=== PATIENT | female | born 1945 | race Caucasian/White ===

== ENCOUNTER 2019-04-20 01:37 | Emergency (ER) | payer MEDICARE, BC, MEDICAID ==
[~2019-04-20] VITALS: Ht 165.1 cm; Wt 68.2 kg
[~2019-04-20 01:37] MED LIST: BIMA2.5D LEFTEYE; EPIN15AE INH; LORA0.5T PO; POLY17PO10 PO; PSEU30SY PO; SYN0.075T PO; SYN0.088T PO; [UNRECOGNIZED DRUG - CODE] PO
[2019-04-20] MEDS ORDERED: normal saline 1000ML IV soln IVB ONE (03:00)
[2019-04-20 04:32] LABS: BASOPHILS % (AUTO) 0.2 % (0-1); EOSINOPHILS # (AUTO) 0.3 X10'3 (0-0.9); EOSINOPHILS % (AUTO) 3.1 % (0-6); HEMATOCRIT 29.8 % (35.0-45.0); HEMOGLOBIN 10.1 g/dl (12.0-16.0); LYMPHOCYTES % (AUTO) 18.7 % (21-51); MEAN CORPUSCULAR HEMOGLOBIN 30.4 PG (27.0-31.0); MEAN CORPUSCULAR HGB CONC 33.7 g/dL (33.0-36.5); MEAN CORPUSCULAR VOLUME 90.1 FL (78-98); MEAN PLATELET VOLUME 6.8 FL (7.4-10.4); MONOCYTES % (AUTO) 9.5 % (2-12); NEUTROPHILS # (AUTO) 7.2 X10'3 (1.8-7.7); NEUTROPHILS % (AUTO) 68.5 % (42-75); PLATELET COUNT 368 X10'3 (140-440); RED BLOOD COUNT 3.31 X10'6 (4.20-5.60); RED CELL DISTRIBUTION WIDTH 13.1 % (11.5-14.5); WHITE BLOOD COUNT 10.5 X10'3 (4.5-11.0)
[2019-04-20 04:36] LABS: ALANINE AMINOTRANSFERASE 26 U/L (12-78); ALBUMIN 2.8 G/DL (3.4-5.0); ALBUMIN/GLOBULIN RATIO 0.7 (1.1-1.5); ALKALINE PHOSPHATASE 68 IU/L (46-116); ANION GAP 7 (8-16); ASPARTATE AMINO TRANSFERASE 24 U/L (10-37); BILIRUBIN,TOTAL 0.2 MG/DL (0.1-1.0); BLOOD UREA NITROGEN 16 MG/DL (7-18); BUN/CREATININE RATIO 21.6 (6.6-38.0); CALCIUM 8.7 MG/DL (8.5-10.1); CHLORIDE 102 MMOL/L (99-107); CREATININE 0.74 MG/DL (0.40-0.90); GLUCOSE 106 MG/DL (70-104); POTASSIUM 3.5 MMOL/L (3.5-5.1); SODIUM 139 MMOL/L (135-145); TOTAL CARBON DIOXIDE 30.1 MMOL/L (24-32); TOTAL PROTEIN 6.7 G/DL (6.4-8.2); eGFR 77 ML/MIN
[2019-04-20 04:50] LABS: CLARITY,URINE CLEAR (Clear); COLOR,URINE YELLOW (Yellow); GLUCOSE, URINE NEGATIVE (Neg); KETONES,URINE NEGATIVE (Neg); LEUKOCYTE ESTERASE ,URINE NEGATIVE (Neg); NITRITES, URINE NEGATIVE (Neg); OCCULT BLOOD,URINE NEGATIVE (Neg); PH,URINE 8.5 (4.8-8.0); PROTEIN,URINE NEGATIVE (Neg); UROBILINOGEN,URINE 0.2 E.U/dL (0.2-1.0)
[2019-04-20] MEDS ORDERED: GABA-534 PO (04:56)
[2019-04-20] MEDS ORDERED: ASPI-100 PO (04:56)
[2019-04-20] MEDS ORDERED: BUDE10.2 INH (04:56)
[2019-04-20] MEDS ORDERED: XAL0.005OS OP (04:56)
[2019-04-20] MEDS ORDERED: FLUT16SP2 BOTHNARES (04:56)
[2019-04-20] MEDS ORDERED: LORA-269 PO (04:56)
[2019-04-20] MEDS ORDERED: ALBU18HF2 INH (04:56)
[2019-04-20] MEDS ORDERED: LEVO75TA56 PO (04:56)
[2019-04-20 04:57] LABS: UA COLLECTION TYPE NON-SPECIFIED
[2019-04-20] MEDS ORDERED: ibuprofen tablet 400 MG TABLET PO ONE ×2 (05:05→22:10)
--- NOTE | 2019-04-20 09:19 | NUR ---
Sasha stated that she has already spoke with patient and case management to see if patient could go to rehab. Patient has home health scheduled for tomorrow to come out to her home per patient. Sasha stated that she would let me know the outcome when she finds out.
[2019-04-20] MEDS ORDERED: ondansetron 4mg rapidly disintigrating tab PO ONE (09:40)
[2019-04-20] MEDS ORDERED: oxyCODONE SR 10mg (sust. release) tab PO ONE ×2 (09:40→18:10)
--- NOTE | 2019-04-20 14:44 | NUR ---
Spoke with Krys from Case Management regarding pt dc plan. Received report AISSATOU Herrera is awaiting medical records from [facility] to review pt case. Krys is to recontact Adrian Herrera and return call with update.
[2019-04-20] MEDS ORDERED: POLY17PO10 PO (16:45)
--- NOTE | 2019-04-20 16:45 | NUR ---
Pt ambulated with assist x 1 to restroom. Pt with difficulty using arms and assisted with toileting.
[2019-04-20] MEDS ORDERED: OXYC5TAB2 PO (16:47)
--- NOTE | 2019-04-20 18:19 | NUR ---
Received Norberto from [facility] for routine home meds and meds for pain control.
--- NOTE | 2019-04-20 18:40 | NUR ---
patient given a turkey sandwich and juice and ice water, before administering pain medication to to help prevent the chance of getting nausea,vomiting. patient appears to be in good spirits rr even un labored no observable s/s of acute stress at this time will continue to monitor sbar to Neema TORRES
--- NOTE | 2019-04-20 19:00 | NUR ---
ASSUMED CARE OF PT FROM MELISSA CRUZ PT TRANSFER[facility] TO [facility] . PT NEEDING SOME QUIET TIME , SPENT MOAT OF DAY IN A HALLBED . RECEIVED PT IN HOSPITAL BED WITH WOUND VAC IN PLACE AND ON . C COLLAR IN PLACE . ALL VSS PATIENT RATES PAIN 8 OUT IF 10 , WAS RECENTLY MEDICATED AND WILL REASSESS ONCE MEDICATION HAS HAD ENOUGH TIME TO TAKE EFFECT.
[2019-04-20] MEDS: gabapentin 400mg capsule PO SCH (19:14)
[2019-04-20] MEDS: docusate sod 100mg capsule PO SCH (20:29)
--- NOTE | 2019-04-20 20:38 | NUR ---
REASSESSED PAIN LEVEL AT A 5-6/ 10 MEDICATED WITH COLACE ORDERED PT DENIES ANY NEEDS AT THIS TIME . WILL CONTINUE TO REASSESS.
--- NOTE | 2019-04-20 21:26 | NUR ---
PT SLEEPING PEACFULLY SUPINE RESP UNLABORED WILL CONTINUE TO MONITOR . [facility] WILL OCCUR , DEPENDING ON AVAILBILITY [facility] 04/21/19
--- NOTE | 2019-04-20 22:12 | NUR ---
PT UP OUT OF BED TO VOID . AFTER AMBULATING BACK TO BED PT RATED PAIN 8/10 . MEDICATED PT WITH 400MG OF MOTRIN PO FOR BREAK THROUGH PAIN . PT RATES IT A 5/10 AFTER GETTING RESETTLED IN BED WILL REASSES IN ONE HOUR
--- NOTE | 2019-04-21 00:05 | NUR ---
PT VERBALIZED THAT HER GABAPENTIN IS Q 8 HR ( TID) AND THAT WITH HER LAST DOSE AT 1914 SHE WAS HAVING STRANGE DREAMS. RATES HER PAIN 5/10 TOLERABLE. MED SHOULD BE GIVEN AT 02 FOR IT TO MEET THE Q 8 SCHEDULE . PHARMACY NOTIFIED
--- NOTE | 2019-04-21 01:05 | NUR ---
PT SELF POSITONS IN SLEEP . PT W/O COMPAINTS RR EVEN ENLABORED WILL CONTINUE TO MONITOR AND REASSESS
[2019-04-21] MEDS: gabapentin 400mg capsule PO SCH ×3 (02:18→10:16)
--- NOTE | 2019-04-21 02:27 | NUR ---
PT RATES PAIN 6 OUT OF 10; MEDICATED, SCHEDULED ,WITH 400 MG OF GABAPENTIN
[2019-04-21] MEDS ORDERED: ibuprofen tablet 400 MG TABLET PO ONE (04:00)
--- NOTE | 2019-04-21 04:10 | NUR ---
MEDICATED PT WITH 400 MG MOTRIN PO. SPOKE WITH PATIENT ABOUT MEDICATION OF CHOICE FOR PAIN MANAGEMENT. PT RATES PAIN 7/10 NO OTHER CHANGES WILL CONTINUE TO MONITOR
--- NOTE | 2019-04-21 05:30 | NUR ---
PT UP AND OUT OF BED TO BATHROOM . WOUND VAC MACHINE BLINKIE - PT UNCLEAR ON WHEN THE DRESSING IS SUPPOSE TO BE CHANGED OR WHAT THE BLINKING LIGHT MEANS. NOTIFIED DR GORDON ABOUT WOUND VAC AND THAT THE PATIENT WILL NEED PAIN MANAGEMENT FOR DAY SHIFT MOST COVERAGE IS X1 . WOUND CARE CONSULSTANT WILL BE ORDERED FOR WOUND VAC EVALUATION
[2019-04-21] MEDS ORDERED: oxyCODONE SR 10mg (sust. release) tab PO ONE (05:50)
[2019-04-21 06:06] VITALS: BP 120/56
--- NOTE | 2019-04-21 06:44 | NUR ---
spoke with charge nurse moisés pollock. pt to stay in [facility] while awaiting dc planning to [facility]. Attempted to restart wound vac but alarmed shortly after starting. Will contiue to monitor. pt sleeping supine with neck brace intact, no distress noted.
[2019-04-21] MEDS ORDERED: levoTHYROXINE 75mcg tablet PO SCH (07:00)
[2019-04-21] MEDS: docusate sod 100mg capsule PO SCH (07:08)
--- NOTE | 2019-04-21 07:38 | NUR ---
Case management notified of pt still in ED. Stated will talk with Dr. Alba this morning about transfer to [facility]. Charge nurse and Dr. Alba notified. Will continue to [facility].
[2019-04-21] MEDS ORDERED: aspirin 325mg tablet PO SCH (08:30)
--- NOTE | 2019-04-21 08:54 | NUR ---
Wound care POC. Received wound care consult to evaluate wound vac to pt's neck. NIMA VAC in place s/p cervical surgery in [facility] last week. Pt states she has DDD and had her first fusion about 20 years ago. She states that due to deterioration she was referred to [facility] for an additional surgery. NIMA VAC with compromised seal and has lost suction. Orders from [facility] state to remove NIMA when batteries run out and keep incision clean and dry. Due to the loss of seal it is contraindicated to try to patch it as the dressing has been open to contamination. Removed NIMA VAC. Incision is well approximated with running suture through entire incision. Drain site on the lower right side of incision with saturated gauze dressing removed. Cleansed incision and drain site with sterile saline and dried. Placed versatel to both, covered incision with island dressing and drain site with gauze and tape. Pt is scheduled to go to [facility] for Rehab and will have nursing staff to monitor incision and change per MD order.
--- NOTE | 2019-04-21 10:27 | NUR ---
pt walked to bathroom with two assist.
== END 2019-04-21 10:48 ==
LOC: ER 01:38
DX: M54.2 Cervicalgia (principal); R55 Syncope and collapse; R53.1 Weakness; R62.7 Adult failure to thrive; E78.00 Pure hypercholesterolemia, unspecified; G89.29 Other chronic pain; F10.99 Alcohol use, unspecified with unspecified alcohol-induced disorder; Z68.25 Body mass index [BMI] 25.0-25.9, adult; Z98.890 Other specified postprocedural states; Z88.8 Allergy status to other drugs, medicaments and biological substances; Z88.5 Allergy status to narcotic agent; Z79.82 Long term (current) use of aspirin; Z79.899 Other long term (current) drug therapy
CPT/HCPCS: 36415; 80053; 81003; 84484; 85025; 93005; 96360; 99284; J7030; 99285

== ENCOUNTER 2020-12-24 07:52 | Day surgery (SDC) | payer MEDICARE, BC, MEDICAID ==
[2020-12-24] VITALS (8 sets, daily range): BP systolic 102–145; BP diastolic 56–72
[~2020-12-24] VITALS: Ht 165.1 cm; Wt 63.5 kg
[~2020-12-24 07:52] MED LIST changes: +ALBU18HF2 INH; +ASPI-100 PO; -BIMA2.5D LEFTEYE; +BUDE10.2 INH; -EPIN15AE INH; +FLUT16SP2 BOTHNARES; +GABA-534 PO; +LEVO75TA56 PO; +LORA-269 PO; -LORA0.5T PO; +OXYC5TAB2 PO; -PSEU30SY PO; -SYN0.075T PO; -SYN0.088T PO; +XAL0.005OS OP; -[UNRECOGNIZED DRUG - CODE] PO
[2020-12-24] MEDS ORDERED: diphenhydrAMINE 25mg capsule PO PRN (08:20)
[2020-12-24] MEDS ORDERED: normal saline 1,000 ML IV SCH (08:20)
[2020-12-24] MEDS ORDERED: ZOLE5INF7 IV (08:46)
[2020-12-24] MEDS ORDERED: VITA-268 PO (08:46)
[2020-12-24] MEDS ORDERED: VITA-135 PO (08:46)
[2020-12-24 09:20] LABS: BASOPHILS # (AUTO) 0.1 X10'3 (0-0.2); BASOPHILS % (AUTO) 0.9 % (0-1); EOSINOPHILS # (AUTO) 0.1 X10'3 (0-0.9); EOSINOPHILS % (AUTO) 1.4 % (0-6); HEMATOCRIT 39.6 % (35.0-45.0); LYMPHOCYTES # (AUTO) 2.1 X10'3 (1.1-4.8); LYMPHOCYTES % (AUTO) 22.9 % (21-51); MEAN CORPUSCULAR HEMOGLOBIN 30.6 PG (27.0-31.0); MEAN CORPUSCULAR HGB CONC 32.9 g/dL (33.0-36.5); MEAN PLATELET VOLUME 6.7 FL (7.4-10.4); MONOCYTES # (AUTO) 0.7 X10'3 (0-0.9); MONOCYTES % (AUTO) 7.4 % (2-12); NEUTROPHILS # (AUTO) 6.2 X10'3 (1.8-7.7); NEUTROPHILS % (AUTO) 67.4 % (42-75); PLATELET COUNT 425 X10'3 (140-440); RED BLOOD COUNT 4.26 X10'6 (4.20-5.60); RED CELL DISTRIBUTION WIDTH 13.1 % (11.5-14.5); WHITE BLOOD COUNT 9.2 X10'3 (4.5-11.0)
[2020-12-24] MEDS ORDERED: heparin 1,000unit/ml 10ml vial 10 ML ONE (10:02)
[2020-12-24] MEDS ORDERED: midazolam 1 mg/ML 2ml injection ONE (10:02)
[2020-12-24] MEDS ORDERED: LIDOcaine 1% (10mg/ml)w/preservative injection 20ml MDV ONE (10:02)
[2020-12-24] MEDS ORDERED: iohexol 350 MG/ML 50ML vial IV ONE (10:02)
[2020-12-24] MEDS ORDERED: fentaNYL/PF 50MCG/1 ML 2ML syringe ONE (10:02)
[2020-12-24] MEDS ORDERED: iohexol 350MG/ML 100ml bottle IV ONE ×2 (10:02→10:48)
[2020-12-24 10:18] LABS: ALBUMIN 3.6 G/DL (3.4-5.0); ANION GAP 11 (8-16); BLOOD UREA NITROGEN 17 MG/DL (7-18); BUN/CREATININE RATIO 18.9 (6.6-38.0); CHLORIDE 106 MMOL/L (99-107); GLUCOSE 99 MG/DL (70-104); MAGNESIUM 2.3 MG/DL (1.5-2.4); POTASSIUM 3.7 MMOL/L (3.5-5.1); SODIUM 141 MMOL/L (135-145); TOTAL CARBON DIOXIDE 24.1 MMOL/L (24-32); eGFR 61 ML/MIN
[2020-12-24] MEDS ORDERED: nitroGLYCERIN-Tridil 50MG/D5W 250 ML IV ONE (10:48)
[2020-12-24] MEDS ORDERED: normal saline 1,000 ML IV ONE (11:34)
[2020-12-24] MEDS ORDERED: ondansetron/PF 4mg/2ml inj IV PRN (11:35)
[2020-12-24] MEDS ORDERED: HYDROcodone/acetaminophen 10/325mg tab PO PRN (11:35)
[2020-12-24] MEDS ORDERED: proCHLORperazine 10 MG/2 ml inj IV PRN (11:35)
[2020-12-24] MEDS ORDERED: acetaminophen 325mg tablet PO PRN (11:35)
[2020-12-24] MEDS ORDERED: HYDROcodone/acetaminophen 5mg/325mg tablet PO PRN (11:35)
== END 2020-12-24 14:40 | disposition home or self-care (01) ==
LOC: SSTAY O 07:52
PROVIDERS: ATTEND Internal Medicine Cardiovascular Disease
DX: I25.110 Atherosclerotic heart disease of native coronary artery with unstable angina pectoris (principal); I10 Essential (primary) hypertension; I44.7 Left bundle-branch block, unspecified; J44.9 Chronic obstructive pulmonary disease, unspecified; H40.9 Unspecified glaucoma; F41.9 Anxiety disorder, unspecified; E03.9 Hypothyroidism, unspecified; Z90.710 Acquired absence of both cervix and uterus; Z90.722 Acquired absence of ovaries, bilateral; Z98.890 Other specified postprocedural states; Z98.1 Arthrodesis status; Z87.891 Personal history of nicotine dependence; Z72.89 Other problems related to lifestyle; Z88.5 Allergy status to narcotic agent; Z88.8 Allergy status to other drugs, medicaments and biological substances; Z79.899 Other long term (current) drug therapy
CPT/HCPCS: 36415; 80048; 83735; 85025; 85610; 93005; 93458; 93571; 93572; 99152; 99153; C1751; C1760; C1769; C1894; J1644; J2001; J2250; J3010; J7030; Q9967; A4620; A6258; J3490

== ENCOUNTER 2023-01-14 06:58 | Day surgery (SDC) | payer MEDICARE, BC, MEDICAID ==
[~2023-01-14] VITALS: Ht 165.1 cm; Wt 57.9 kg
[~2023-01-14 06:58] MED LIST changes: -GABA-534 PO; +GABA-535 PO; -POLY17PO10 PO; +VITA-135 PO; +VITA-268 PO; +ZOLE5INF7 IV
[2023-01-14] MEDS ORDERED: VALA500T41 PO (07:15)
[2023-01-14] MEDS ORDERED: ASCO250T68 (07:17)
[2023-01-14] MEDS ORDERED: VITA-273 (07:17)
[2023-01-14 08:23] VITALS: BP 134/82; PULSE 76; RESP 20
[2023-01-14] MEDS ORDERED: fentaNYL/PF 50MCG/1 ML 2ML syringe ONE (08:33)
[2023-01-14] MEDS ORDERED: diphenhydrAMINE 50 mg/ml inj ONE (08:34)
[2023-01-14] MEDS ORDERED: LIDOcaine Viscous 15ml cup ONE (08:34)
[2023-01-14] MEDS ORDERED: MIDAZolam 1 MG/ML 5ML VIAL ONE (08:34)
[2023-01-14 09:20] VITALS: BP 114/64; PULSE 78; RESP 14; O2SAT 97
[2023-01-14 09:30] VITALS: BP 115/71; PULSE 72; RESP 16; O2SAT 94
[2023-01-14 09:40] VITALS: BP 121/71; PULSE 70; RESP 13; O2SAT 95
[2023-01-14 09:50] VITALS: BP 125/53; PULSE 81; RESP 13; O2SAT 96
== END 2023-01-14 09:55 | disposition home or self-care (01) ==
LOC: GI LAB 06:58
PROVIDERS: ATTEND Internal Medicine Gastroenterology
DX: K62.89 Other specified diseases of anus and rectum (principal); R13.10 Dysphagia, unspecified; K29.50 Unspecified chronic gastritis without bleeding; K44.9 Diaphragmatic hernia without obstruction or gangrene; K57.30 Diverticulosis of large intestine without perforation or abscess without bleeding; M81.0 Age-related osteoporosis without current pathological fracture; J45.909 Unspecified asthma, uncomplicated; G43.909 Migraine, unspecified, not intractable, without status migrainosus; I44.7 Left bundle-branch block, unspecified; I25.2 Old myocardial infarction; Z85.51 Personal history of malignant neoplasm of bladder; Z79.899 Other long term (current) drug therapy
CPT/HCPCS: 43239; 45330; 88305; G0500; J2250; J3010; J7030; Z7512; 45378; 99152; 99153; A4620; J1200